=== PATIENT | male | born 1990 | race Caucasian/White ===

== ENCOUNTER 2019-08-01 06:05 | Emergency (ER) | payer OTHER ==
[~2019-08-01] VITALS: Ht 180.3 cm; Wt 72.6 kg
[2019-08-01 06:07] VITALS: BP 163/93; Ht 180.3 cm; Wt 72.6 kg
== END 2019-08-01 06:37 | disposition other institution (70) ==
LOC: ED 06:05
DX: Z02.89 Encounter for other administrative examinations (principal)